=== PATIENT | female | born 1995 ===

== ENCOUNTER 2024-01-20 10:45 | Outpatient (REF) | payer MEDICAID, SELFPAY ==
[2024-01-20 15:23] LABS: Calculated LDL 65 mg/dL (<100); Cholesterol 157 mg/dL (<200); HDL Cholesterol 79 mg/dL (40-60); Triglyceride 67 mg/dL (<150)
[2024-01-21 08:55] LABS: Syphilis Serology (RPR) Negative (Negative)
[2024-01-21 09:13] LABS: Hepatitis B Surface Ag Negative (Negative)
[2024-01-21 09:50] LABS: HIV-1/2 Ag & Ab Screen Negative (Negative)
[2024-01-21 09:59] LABS: Hepatitis C Ab w Rflx HCV PCR Negative (Negative)
[2024-01-21 12:44] LABS: Chlamydia Result Negative (Negative); GC Result Negative (Negative)
[2024-01-22 10:34] LABS: HSV Type 1 Ab, IgG Positive (Negative); HSV Type 2 Ab, IgG Negative (Negative)
== END 2024-01-20 10:46 | disposition home or self-care (01) ==
LOC: NCHCN 10:45
PROVIDERS: Visit Provider Family Medicine
DX: Z11.3 Encounter for screening for infections with a predominantly sexual mode of transmission (principal)
CPT/HCPCS: 80061; 86803; 87340; 87389; 87491; 87591; 86592; 86695; 86696

== ENCOUNTER 2024-04-06 19:34 | Outpatient (REF) | payer MEDICAID, SELFPAY | END 2024-04-06 19:35 | disposition home or self-care (01) | LOC: NCHCN 19:34 | PROVIDERS: Visit Provider Family Medicine | DX: R19.7 Diarrhea, unspecified (principal) | CPT/HCPCS: 87177 ==